=== PATIENT | female | born 1955 | race Caucasian/White ===

== ENCOUNTER 2017-08-21 00:32 | Observation (INO) | payer BC, OTHER ==
--- NOTE | 2017-08-21 00:39 | PDOC ---
History of Present Illness - General Stated Complaint: DIZZINESS Time Seen by Provider: 08/21/17 00:38 - History of Present Illness Initial Comments: 08/21/17 01:04 Ms. Rasheed is a 62 yo female w/ pmh of HTN who presents c/o a 24 hour history of dizziness. She reports that she believes she "did too much partying" this weekend and clarifies that she was drinking alcohol and eating salty foods over the holidays. Ms. Rasheed says that this started last evening and has continued on throughout the day; she believes it is due to increased blood pressure as she has had similar problems in the past. She denies any recreational drug use. The patient denies chest pain, shortness of breath, and headache. Denies fever, chills, nausea, vomit, diarrhea and constipation. Denies dysuria, frequency, urgency and hematuria. Allergies: Penicillins Past History - Past Medical History Allergies/Adverse Reactions: Allergies Allergy/AdvReac Type Severity Reaction Status Date / Time Penicillins Allergy Severe Difficulty Verified 08/21/17 00:44 Breathing Home Medications: Ambulatory Orders Valsartan [Diovan] 320 mg PO DAILY 10/09/11 Nebivolol HCl [Bystolic] 20 mg DAILY 08/21/17 Disorders: Yes (acid reflux) HTN: Yes - Suicide/Smoking/Psychosocial Hx Smoking Status: No Smoking History: Former smoker Number of Cigarettes Smoked Daily: 0 Review of Systems - Review of Systems Comments:: 08/21/17 01:08 GENERAL/CONSTITUTIONAL: No fever or chills. No weakness. HEAD, EYES, EARS, NOSE AND THROAT: No change in vision. No ear pain or discharge. No sore throat. CARDIOVASCULAR: No chest pain or shortness of breath RESPIRATORY: No cough, wheezing, or hemoptysis. GASTROINTESTINAL: No nausea, vomiting, diarrhea or constipation. GENITOURINARY: No dysuria, frequency, or change in urination. MUSCULOSKELETAL: No joint or muscle swelling or pain. No neck or back pain. SKIN: No rash NEUROLOGIC: +Dizziness as reported; non-positional ENDOCRINE: No increased thirst. No abnormal weight change HEMATOLOGIC/LYMPHATIC: No anemia, easy bleeding, or history of blood clots. ALLERGIC/IMMUNOLOGIC: No hives or skin allergy. *Physical Exam - Physical Exam Comments: 01/02/18 01:09 GENERAL: Awake, alert, and fully oriented, in no acute distress HEAD: No signs of trauma, normocephalic, atraumatic EYES: PERRLA, EOMI, sclera anicteric, conjunctiva clear ENT: Auricles normal inspection, hearing grossly normal, nares patent, oropharynx clear without exudates. Moist mucosa NECK: Normal ROM, supple, no lymphadenopathy, JVD, or masses LUNGS: No distress, speaks full sentences, clear to auscultation bilaterally HEART: Regular rate and rhythm, normal S1 and S2, no murmurs, rubs or gallops, peripheral pulses normal and equal bilaterally. ABDOMEN: Soft, nontender, normoactive bowel sounds. No guarding, no rebound. No masses EXTREMITIES: Normal inspection, Normal range of motion, no edema. No clubbing or cyanosis. NEUROLOGICAL: Cranial nerves II through XII grossly intact. Normal speech, normal gait, no focal sensorimotor deficits SKIN: Warm, Dry, normal turgor, no rashes or lesions noted. ED Treatment Course - LABORATORY CBC & Chemistry Diagram: 08/21/17 01:15 08/21/17 01:15 Medical Decision Making - Medical Decision Making 08/21/17 02:28 Ms. Rasheed presents with dizziness and HTN. Repeat BP decreased to 170's. Clonidine 0.2 given. Labs concerning for Hyponatremia as below. BP after clonidine 157/65. Head CT revealed no acute findings. Patient will be observed in the ED overnight. 08/21/17 06:55 Patient signed out to Dr. Molina for further care. Laboratory Results - last 24 hr 08/21/17 08/21/17 01:15 01:15 WBC 11.0 H D RBC 3.89 Hgb 13.3 Hct 39.0 MCV 100.4 H MCH 34.1 H MCHC 34.0 RDW 13.3 Plt Count 257 MPV 7.5 Neutrophils % 77.3 D Lymphocytes % 15.6 D Monocytes % 5.6 Eosinophils % 0.8 Basophils % 0.7 Sodium 129 L Potassium 3.1 L D Chloride 92 L Carbon Dioxide 23 D Anion Gap 14 BUN 18 D Creatinine 0.7 D Creat Clearance w eGFR > 60 Random Glucose 115 H Calcium 8.8 Total Bilirubin 1.1 H D AST 82 H D ALT 105 H Alkaline Phosphatase 82 Creatine Kinase 96 Troponin I 0.03 Total Protein 6.9 Albumin 3.8 *DC/Admit/Observation/Transfer Diagnosis at time of Disposition: Hyponatremia, Dizziness Hypertension Qualifiers: Hypertension type: unspecified Qualified Code(s): I10 - Essential (primary) hypertension - Discharge Dispostion Admit: Yes - Referrals - Patient Instructions - Post Discharge Activity
--- NOTE | 2017-08-21 00:48 | PDOC ---
Attending Attestation - Physicial Exam PE: 08/21/17 01:51 GENERAL: Awake, alert, and fully oriented, in no acute distress HEAD: No signs of trauma EYES: PERRLA, EOMI, sclera anicteric, conjunctiva clear ENT: Auricles normal inspection, nares patent. Moist mucosa NECK: Normal ROM, supple, no JVD, or masses LUNGS: Breath sounds equal, clear to auscultation bilaterally. No wheezes, and no crackles HEART: Regular rate and rhythm, normal S1 and S2, no murmurs, rubs or gallops ABDOMEN: Soft, nontender, normoactive bowel sounds. No guarding, no rebound. No masses EXTREMITIES: Normal range of motion, no edema. No clubbing or cyanosis. No cords, erythema, or tenderness NEUROLOGICAL: Alert and oriented x 3. Moves all extremities. Face is symmetric. SKIN: Warm, Dry, normal turgor, no rashes or lesions noted. - Medical Decision Making 08/21/17 01:52 Documentation prepared by Zoe Mena, acting as medical office worker for Julienne Morrow MD. <Zoe Mena - Last Filed: 08/21/17 01:51> - Resident Resident Name: Doug Bah - ED Attending Attestation I have performed the following: I have examined & evaluated the patient, The case was reviewed & discussed with the resident, I agree w/resident's findings & plan, Exceptions are as noted - HPI HPI: 08/21/17 00:47 62 yo female has c/o dizziness. Pt has significant high blood pressure - Medical Decision Making 08/22/17 00:07 pt admitted pt found to be hyponatremic ,hypokalemic, hypertensive, ct head negative <Julienne Morrow - Last Filed: 08/22/17 00:08>
[2017-08-21 00:54] VITALS: TEMP 98.1; BMI 29.2
[2017-08-21] MEDS ORDERED: cloNIDine HCL 0.1 MG TABLET PO ONE (00:56)
[2017-08-21] MEDS ORDERED: cloNIDine HCL 0.1 MG TABLET ONE (01:12)
[2017-08-21 01:30] LABS: BASO % 0.7 % (0-2.0); EOS % 0.8 % (0-4.5); HEMOGLOBIN 13.3 GM/dL (10.7-15.3); LYMPH % 15.6 % (8-40); MCH 34.1 pg (25.7-33.7); MEAN CELL VOLUME 100.4 fl (80-96); MEAN PLT VOLUME 7.5 fl (7.5-11.1); MONO % 5.6 % (3.8-10.2); NEUT % 77.3 % (42.8-82.8); PLATELET COUNT 257 K/MM3 (134-434); RBC 3.89 M/mm3 (3.60-5.2); RDW 13.3 % (11.6-15.6)
[2017-08-21 02:11] LABS: ALBUMIN 3.8 g/dl (3.4-5.0); ANION GAP 14 (8-16); BILIRUBIN,TOTAL 1.1 mg/dL (0.2-1.0); BLOOD UREA NITROGEN 18 mg/dL (7-18); CALCIUM 8.8 mg/dL (8.5-10.1); CHLORIDE 92 mmol/L (98-107); CO2 23 mmol/L (21-32); CREATININE 0.7 mg/dL (0.55-1.02); GLUCOSE,RANDOM 115 mg/dL (74-106); POTASSIUM 3.1 mmol/L (3.5-5.1); SGOT/AST 82 U/L (15-37); SGPT/ALT 105 U/L (12-78); SODIUM 129 mmol/L (136-145); TOT PROT 6.9 g/dl (6.4-8.2)
[2017-08-21 02:13] LABS: ALK PHOS 82 U/L (45-117)
[2017-08-21] MEDS ORDERED: MAGNESIUM SULF 50% (8.12 MEQ/2 ML-1 GM VIAL) IVPB ONE (02:17)
[2017-08-21] MEDS ORDERED: POTASSIUM CHLORIDE TABS 20 MEQ TABLET.ER (FP) PO ONE ×4 (02:17→04:34)
[2017-08-21] MEDS ORDERED: VALSARTAN 160 MG TABLET (UD) PO ONE (02:18)
[2017-08-21] MEDS ORDERED: MAGNESIUM SULF 50% (8.12 MEQ/2 ML-1 GM VIAL) ONE (02:46)
[2017-08-21] MEDS ORDERED: VALSARTAN 80 MG TABLET (UD) ONE ×2 (02:47→12:08)
[2017-08-21] MEDS ORDERED: SODIUM CHLORIDE 500 ML IV STA (02:54)
--- NOTE | 2017-08-21 08:21 | PDOC ---
History of Present Illness - General Chief Complaint: Blood Pressure Problem Stated Complaint: DIZZINESS Time Seen by Provider: 08/21/17 00:38 Past History - Past Medical History Allergies/Adverse Reactions: Allergies Allergy/AdvReac Type Severity Reaction Status Date / Time Penicillins Allergy Severe Difficulty Verified 08/21/17 00:44 Breathing Home Medications: Ambulatory Orders Valsartan [Diovan] 320 mg PO DAILY 10/09/11 Nebivolol HCl [Bystolic] 20 mg DAILY 08/21/17 Disorders: Yes (acid reflux) HTN: Yes - Suicide/Smoking/Psychosocial Hx Smoking Status: No Smoking History: Former smoker Have you smoked in the past 12 months: No Number of Cigarettes Smoked Daily: 0 Information on smoking cessation initiated: No Hx Alcohol Use: No Drug/Substance Use Hx: No *Physical Exam - Vital Signs Last Vital Signs Temp Pulse Resp BP Pulse Ox 98.1 F 65 18 157/65 98 08/21/17 00:44 08/21/17 00:44 08/21/17 00:44 08/21/17 02:55 08/21/17 00:44 ED Treatment Course - LABORATORY CBC & Chemistry Diagram: 08/21/17 01:15 08/21/17 01:15 - ADDITIONAL ORDERS Additional order review: Laboratory Results 08/21/17 01:15 Sodium 129 L Potassium 3.1 L D Chloride 92 L Carbon Dioxide 23 D Anion Gap 14 BUN 18 D Creatinine 0.7 D Creat Clearance w eGFR > 60 Random Glucose 115 H Calcium 8.8 Total Bilirubin 1.1 H D AST 82 H D ALT 105 H Alkaline Phosphatase 82 Creatine Kinase 96 Troponin I 0.03 Total Protein 6.9 Albumin 3.8 08/21/17 01:15 RBC 3.89 MCV 100.4 H MCHC 34.0 RDW 13.3 MPV 7.5 Neutrophils % 77.3 D Lymphocytes % 15.6 D Monocytes % 5.6 Eosinophils % 0.8 Basophils % 0.7 - Medications Given in the ED: ED Medications Discontinued Medications Generic Name Dose Route Start Last Admin Trade Name Freq PRN Reason Stop Dose Admin Clonidine 0.2 mg 08/21/17 00:56 08/21/17 01:25 Catapres - PO 08/21/17 00:57 0.2 mg ONCE ONE Administration Sodium Chloride 500 mls @ 1,000 mls/hr 08/21/17 02:54 08/21/17 02:56 Normal Saline - IV 08/21/17 03:23 1,000 mls/hr ASDIR STA Administration Magnesium Sulfate 2 gm 08/21/17 02:17 08/21/17 02:56 Magnesium Sulfate IVPB 08/21/17 02:18 2 gm ONCE ONE Administration Potassium Chloride 40 meq 08/21/17 02:17 08/21/17 02:56 K-Dur - PO 08/21/17 02:18 40 meq ONCE ONE Administration Potassium Chloride 40 meq 08/21/17 04:14 08/21/17 04:37 K-Dur - PO 08/21/17 04:15 40 meq ONCE ONE Administration Valsartan 160 mg 08/21/17 02:18 08/21/17 02:56 Diovan - PO 08/21/17 02:19 160 mg ONCE ONE Administration Medical Decision Making - Medical Decision Making 08/21/17 08:03 Pt signed out by night team. Pt is a 62 y/o F with PMH HTN who came in with headache, and was found to be hypertensive and mildly hyponatremic and hypokalemic. Hypertension resolved promtly with clonidine. Pt was given NS and KCl. Pt is currently comfortable in bed. Her symptoms have resolved. Pt no longer has headache. Currently afebrile, stable, in NAD. Sent microblog to admitting team at 7:12am. 08/21/17 08:22 Pt still comfortable. Microblog showing as unread. 08/21/17 08:58 Spoke with admitting team who will see the patient. *DC/Admit/Observation/Transfer Diagnosis at time of Disposition: Hyponatremia, Dizziness Hypertension Qualifiers: Hypertension type: unspecified Qualified Code(s): I10 - Essential (primary) hypertension - Referrals - Patient Instructions - Post Discharge Activity
--- NOTE | 2017-08-21 10:00 | HP ---
CHIEF COMPLAINT: "Dizziness, headache, disorientation" PCP: Dr. Doyle Scott ([facility], ) HISTORY OF PRESENT ILLNESS: Patient is an 62 year old female presented to the ED with the chief complaint of "Headache, dizziness, disorientation". As per the patient, she was apparently well until a day ago. She was driving back from [facility] to [place] and started feeling very dizzy, had blurring of vision, wasn't feeling herself. She had similar episode in 2011 then she came to the ED at [facility], was treated and discharged the same day. Patient was worried that her blood pressure was high hence came in to the ED for further evaluation. Patient reports a day prior to ED visit, she went to a democrat where she had high salt diet and more than 4 cocktails Denies chest pain, sob, cough, palpitation, abdominal pain, nausea or vomiting, numbness, weakness of extremities, seizure activity. Bladder/Bowel habit normal. Sleep/Appetite normal prior to illness. Patient mentions she was diagnosed to be hypertensive about 10 yrs ago. Visits her PCP every 2 yrs. ER course was notable for: (1) Blood pressure 202/163; Afebrile; (2) EKG: Sinus bradycardia (3) Clonidine 0.3mg; K-dur 40mg; IV Magnesium 2gm Recent Travel: None PAST MEDICAL HISTORY: Hypertension PAST SURGICAL HISTORY: None Social History: Smoking: Quit 10 years ago, smoked for 9 years about 1/2 a pack Alcohol: Drinks on the weekends, around 2-3 cocktails Drugs: Denies Family History: Non contributory Allergies Penicillins Allergy (Severe, Verified 08/21/17 00:44) Difficulty Breathing HOME MEDICATIONS: Home Medications Medication Instructions Recorded Valsartan [Diovan] 320 mg PO DAILY 10/09/11 Nebivolol HCl [Bystolic] 20 mg DAILY 08/21/17 REVIEW OF SYSTEMS CONSTITUTIONAL: Absent: fever, chills, diaphoresis, generalized weakness, malaise, loss of appetite, weight change HEENT: Absent: rhinorrhea, nasal congestion, throat pain, throat swelling, difficulty swallowing, mouth swelling, ear pain, eye pain, visual changes CARDIOVASCULAR: Absent: chest pain, syncope, palpitations, irregular heart rate, lightheadedness , peripheral edema RESPIRATORY: Absent: cough, shortness of breath, dyspnea with exertion, orthopnea, wheezing, stridor, hemoptysis GASTROINTESTINAL: Absent: abdominal pain, abdominal distension, nausea, vomiting, diarrhea, constipation, melena, hematochezia GENITOURINARY: Absent: dysuria, frequency, urgency, hesitancy, hematuria, flank pain, genital pain MUSCULOSKELETAL: Absent: myalgia, arthralgia, joint swelling, back pain, neck pain SKIN: Absent: rash, itching, pallor HEMATOLOGIC/IMMUNOLOGIC: Absent: easy bleeding, easy bruising, lymphadenopathy, frequent infections ENDOCRINE: Absent: unexplained weight gain, unexplained weight loss, heat intolerance, cold intolerance NEUROLOGIC: Present: headache, dizziness, blurring of vision, disorientation. Absent: , focal weakness or paresthesias, dizziness, unsteady gait, seizure, mental status changes, bladder or bowel incontinence PSYCHIATRIC: Absent: anxiety, depression, suicidal or homicidal ideation, hallucinations. PHYSICAL EXAMINATION Vital Signs - 24 hr 08/21/17 08/21/17 00:44 02:55 Temperature 98.1 F Pulse Rate 65 Respiratory 18 Rate Blood Pressure 202/163 Blood Pressure 157/65 [Left Arm] O2 Sat by Pulse 98 Oximetry (%) GENERAL: Patient is a lying comfortably in bed, Awake, alert, and fully oriented , in no acute distress. HEAD: Normal with no signs of trauma. EYES: EOM intact, no pallor or icterus. EARS, NOSE, THROAT: Ears normal. Moist mucous membranes. NECK: Supple. LUNGS: B/L Breath sounds equal, clear to auscultation bilaterally. No wheezes, and no crackles. No accessory muscle use. HEART: Regular rate and rhythm, normal S1 and S2 without murmur. ABDOMEN: Soft, nontender, not distended, normoactive bowel sounds, no guarding, no rebound, no masses. No hepatomegaly or splenomegaly. MUSCULOSKELETAL: Normal range of motion at all joints. No bony deformities or tenderness. No CVA tenderness. UPPER EXTREMITIES: 2+ pulses, warm, well-perfused. No cyanosis. No clubbing. No peripheral edema. LOWER EXTREMITIES: 2+ pulses, warm, well-perfused. No calf tenderness. No peripheral edema. NEUROLOGICAL: No facial droop, power 5/5 in all extremities. Cranial nerves II- XII intact. Normal speech. Normal gait-walked more than 50 ft. PSYCHIATRIC: Cooperative. Good eye contact. Appropriate mood and affect. SKIN: Warm, dry, normal turgor, no rashes or lesions noted, normal capillary refill. Laboratory Results - last 24 hr 08/21/17 08/21/17 01:15 01:15 WBC 11.0 H D RBC 3.89 Hgb 13.3 Hct 39.0 MCV 100.4 H MCH 34.1 H MCHC 34.0 RDW 13.3 Plt Count 257 MPV 7.5 Neutrophils % 77.3 D Lymphocytes % 15.6 D Monocytes % 5.6 Eosinophils % 0.8 Basophils % 0.7 Sodium 129 L Potassium 3.1 L D Chloride 92 L Carbon Dioxide 23 D Anion Gap 14 BUN 18 D Creatinine 0.7 D Creat Clearance w eGFR > 60 Random Glucose 115 H Calcium 8.8 Total Bilirubin 1.1 H D AST 82 H D ALT 105 H Alkaline Phosphatase 82 Creatine Kinase 96 Troponin I 0.03 Total Protein 6.9 Albumin 3.8 ASSESSMENT/PLAN: Patient is an 62 year old female with significant past medical history of presented to the ED with the chief complaint of "Headache, dizziness, disorientation" was found to have Hypertensive urgency. # Hypertensive urgency c/o headache, dizziness, blurring of vision, disorientation. On arrival, BP was 202/163 mmHg. In the ED, even without receiving medication , her BP decreased to 170/[address] in Observation Patient is currently asymptomatic. Blood pressure has improved. Head CT negative for any acute pathology This morning, gave her home dose of Bystolic and Diovan Repeat BP now is : Urine toxicology pending. # Electrolyte imbalance Hypokalemia-3.1, Hyponatremia-129. Most likely secondary to use to alcohol K repleted Repeat BMP is pending # FEN Not on IV fluids Electrolytes to be repeated, report pending Sodium controlled diet # Prophylaxis: For DVT: Ambulating, early discharge For GI: Not indicated # Code Status: Full Code # Dispo: Patient agrees to see her PCP in a week. Will discharge once patient' s labs comes back. Case discussed with Dr. Santos.
[2017-08-21] MEDS ORDERED: VALSARTAN 160 MG TABLET (UD) PO SCH (10:15)
[2017-08-21] MEDS ORDERED: NEBIVOLOL 10 MG TABLET (FP) PO SCH (10:15)
[2017-08-21 11:43] LABS: ANION GAP 12 (8-16); BLOOD UREA NITROGEN 14 mg/dL (7-18); CALCIUM 8.9 mg/dL (8.5-10.1); CHLORIDE 102 mmol/L (98-107); CO2 22 mmol/L (21-32); GLUCOSE,RANDOM 107 mg/dL (74-106); SODIUM 136 mmol/L (136-145)
[2017-08-21 11:44] LABS: CREATININE 0.6 mg/dL (0.55-1.02); MAGNESIUM 2.9 mg/dL (1.8-2.4); POTASSIUM 5.3 mmol/L (3.5-5.1)
--- NOTE | 2017-08-21 11:59 | DS ---
Physical Exam: SUBJECTIVE: Patient seen and examined at bed side. No complaints. Headache, dizziness and blurring of vision has resolved. Denies chest pain, sob, cough, palpitation, abdominal pain, nausea or vomiting. Bowel/Bladder habit normal. No acute events in the ED. OBJECTIVE: Vital Signs Period Temp Pulse Resp BP Sys/Scott Pulse Ox Last 24 Hr 98.1 F 55-65 16-18 109-202/62-163 98-99 PHYSICAL EXAM GENERAL: Patient is a lying comfortably in bed, Awake, alert, and fully oriented , in no acute distress. HEAD: Normal with no signs of trauma. EYES: EOM intact, no pallor or icterus. EARS, NOSE, THROAT: Ears normal. Moist mucous membranes. NECK: Supple. LUNGS: B/L Breath sounds equal, clear to auscultation bilaterally. No wheezes, and no crackles. No accessory muscle use. HEART: Regular rate and rhythm, normal S1 and S2 without murmur. ABDOMEN: Soft, nontender, not distended, normoactive bowel sounds, no guarding, no rebound, no masses. No hepatomegaly or splenomegaly. MUSCULOSKELETAL: Normal range of motion at all joints. No bony deformities or tenderness. No CVA tenderness. UPPER EXTREMITIES: 2+ pulses, warm, well-perfused. No cyanosis. No clubbing. No peripheral edema. LOWER EXTREMITIES: 2+ pulses, warm, well-perfused. No calf tenderness. No peripheral edema. NEUROLOGICAL: No facial droop, power 5/5 in all extremities. Cranial nerves II- XII intact. Normal speech. Normal gait-walked more than 50 ft. PSYCHIATRIC: Cooperative. Good eye contact. Appropriate mood and affect. SKIN: Warm, dry, normal turgor, no rashes or lesions noted, normal capillary refill. LABS Laboratory Results - last 24 hr 08/21/17 08/21/17 08/21/17 01:15 01:15 10:40 WBC 11.0 H D RBC 3.89 Hgb 13.3 Hct 39.0 MCV 100.4 H MCH 34.1 H MCHC 34.0 RDW 13.3 Plt Count 257 MPV 7.5 Neutrophils % 77.3 D Lymphocytes % 15.6 D Monocytes % 5.6 Eosinophils % 0.8 Basophils % 0.7 Sodium 129 L 136 Potassium 3.1 L D 5.3 H D Chloride 92 L 102 D Carbon Dioxide 23 D 22 Anion Gap 14 12 BUN 18 D 14 D Creatinine 0.7 D 0.6 Creat Clearance w eGFR > 60 Random Glucose 115 H 107 H Calcium 8.8 8.9 Magnesium 2.9 H Total Bilirubin 1.1 H D AST 82 H D ALT 105 H Alkaline Phosphatase 82 Creatine Kinase 96 Troponin I 0.03 Total Protein 6.9 Albumin 3.8 HOSPITAL COURSE: Date of Admission:08/21/17 Date of Discharge: 08/21/17 Patient is an 62 year old female with significant past medical history of presented to the ED with the chief complaint of "Headache, dizziness, disorientation" was found to have Hypertensive urgency. On arrival, BP was 202/ 163 mmHg. In the ED, even without receiving medication, her BP decreased to 170/ 78 mmHg. Patient received Clonidine 0.2 mg and blood pressure improved o 150/ 64mmHg. Head CT negative for any acute pathology. Patient is currently asymptomatic. Blood pressure has improved. Patient reassures she will visit her PCP within a week and f/up with blood work. Patient was advised to take her medication daily , check her BP daily, follow low sodium diet and daily exercises. Patient was also found to have Electrolyte imbalance (Hypokalemia-3.1, Hyponatremia-129). Most likely secondary to use to alcohol. K was repleted. Case discussed with Dr. Santos. Minutes to complete discharge: 40 Discharge Summary Reason For Visit: DIZZINESS/HYPONATREMIA/HYPERTENSION Current Active Problems Dizziness (Acute) Hypertension (Acute) Hyponatremia (Acute) - Instructions Diet, Activity, Other Instructions: You were placed in observation due to Hypertensive urgency meaning your blood pressure was really high. Please take your medication regularly. Visit your PCP within a week and highly recommend you to recheck your blood (recheck potassium ) in a week. Please follow the instructions below. 1. Lifestyle modifications: low salt diet, high fibre diet 2. Exercise at least 3-4 times/week, 40 mins a day. 3. Take your medication daily: Bystolic and Diovan 4. Cut down alcohol intake. 5. Measure blood pressure regularly at home. 6. F/up with PCP 7. Check hypertensive changes in eyes-visit chief ophthalmic technician. If your symptoms get worse or you develop any new symptoms, please visit the ED immediately. Referrals: Doyle Scott [Primary Care Provider] - 1 Week (Please visit your PCP in a week. ) - Home Medications Comprehensive Discharge Medication List: Ambulatory Orders Valsartan [Diovan] 320 mg PO DAILY 10/09/11 Nebivolol HCl [Bystolic] 20 mg DAILY 08/21/17
[2017-08-21 13:04] LABS: COCAINE, UR NEGATIVE ng/ml (CUTOFF=300); METHADONE, UR NEGATIVE ng/ml (CUTOFF=300); OPIATES, URI NEGATIVE ng/ml (CUTOFF=300); PHENCYCLIDINE,URINE NEGATIVE ng/ml (CUTOFF=25); URINE AMPHETAMINES NEGATIVE ng/ml (CUTOFF=500); URINE BARBITURATES NEGATIVE ng/ml (CUTOFF=200); URINE BENZODIAZEPINES NEGATIVE ng/ml (CUTOFF=200)
[2017-08-21 13:56] VITALS: BP 118/68; PULSE 61
--- NOTE | 2017-08-21 14:00 | PN ---
Teaching Attending Note Name of Resident: Deysi Jose ATTENDING PHYSICIAN STATEMENT Time of evaluation: 12:25 PM I saw and evaluated the patient. I reviewed the resident's note and discussed the case with the resident. I agree with the resident's findings and plan as documented. SUBJECTIVE: Patient seen and examined. no complaints, all dressed and ready to leave. Denies any headache, vision changes, dizziness, dyspnea, abdominal pain or chest pain or palpitations. OBJECTIVE: Vital Signs Period Temp Pulse Resp BP Sys/Scott Pulse Ox Last 24 Hr 98.1 F 58-65 16-18 110-202/65-163 98-99 Intake & Output 08/18/17 08/19/17 08/20/17 08/21/17 23:59 23:59 23:59 23:59 Weight 160 lb GENERAL: Awake, alert, and fully oriented, in no acute distress. HEAD: Normal with no signs of trauma. EYES: Pupils equal, round and reactive to light, extraocular movements intact, sclera anicteric, conjunctiva clear. No lid lag. EARS, NOSE, THROAT: Ears normal, nares patent, oropharynx clear without exudates. Moist mucous membranes. NECK: Normal range of motion, supple without lymphadenopathy, JVD, or masses. LUNGS: Breath sounds equal, clear to auscultation bilaterally. No wheezes, and no crackles. No accessory muscle use. HEART: Regular rate and rhythm, S1S2 regular ABDOMEN: Soft, nontender, not distended, normoactive bowel sounds, no guarding, no rebound, no masses. No hepatomegaly or splenomegaly. MUSCULOSKELETAL: Normal range of motion at all joints. No bony deformities or tenderness. No CVA tenderness. UPPER EXTREMITIES: 2+ pulses, warm, well-perfused. No cyanosis. No clubbing. No peripheral edema. LOWER EXTREMITIES: 2+ pulses, warm, well-perfused. No calf tenderness. No peripheral edema. NEUROLOGICAL: Cranial nerves II-XII intact. Normal speech. Normal gait. PSYCHIATRIC: Cooperative. Good eye contact. Appropriate mood and affect. SKIN: Warm, dry, normal turgor, no rashes or lesions noted, normal capillary refill. Laboratory Results - last 24 hr 08/21/17 08/21/17 08/21/17 01:15 01:15 10:40 WBC 11.0 H D RBC 3.89 Hgb 13.3 Hct 39.0 MCV 100.4 H MCH 34.1 H MCHC 34.0 RDW 13.3 Plt Count 257 MPV 7.5 Neutrophils % 77.3 D Lymphocytes % 15.6 D Monocytes % 5.6 Eosinophils % 0.8 Basophils % 0.7 Sodium 129 L 136 Potassium 3.1 L D 5.3 H D Plasma Potassium Chloride 92 L 102 D Carbon Dioxide 23 D 22 Anion Gap 14 12 BUN 18 D 14 D Creatinine 0.7 D 0.6 Creat Clearance w eGFR > 60 Random Glucose 115 H 107 H Calcium 8.8 8.9 Magnesium 2.9 H Total Bilirubin 1.1 H D AST 82 H D ALT 105 H Alkaline Phosphatase 82 Creatine Kinase 96 Troponin I 0.03 Total Protein 6.9 Albumin 3.8 Opiates Screen Methadone Screen Barbiturate Screen Phencyclidine Screen Ur Amphetamines Screen MDMA (Ecstasy) Screen Benzodiazepines Screen Cocaine Screen U Marijuana (THC) Screen 08/21/17 08/21/17 12:10 12:10 WBC RBC Hgb Hct MCV MCH MCHC RDW Plt Count MPV Neutrophils % Lymphocytes % Monocytes % Eosinophils % Basophils % Sodium Potassium Plasma Potassium 5.0 Chloride Carbon Dioxide Anion Gap BUN Creatinine Creat Clearance w eGFR Random Glucose Calcium Magnesium Total Bilirubin AST ALT Alkaline Phosphatase Creatine Kinase Troponin I Total Protein Albumin Opiates Screen Negative Methadone Screen Negative Barbiturate Screen Negative Phencyclidine Screen Negative Ur Amphetamines Screen Negative MDMA (Ecstasy) Screen Negative Benzodiazepines Screen Negative Cocaine Screen Negative U Marijuana (THC) Screen Negative EKG: sinus bradycardia CT brain neg for acute process CXR: neg for acute process ASSESSMENT AND PLAN: -Uncontrolled HTN -Hyponatremia -Hypokalemia, then hyperkalemia, now improved Plan: BP improved, patient asymptomatic. Resume home meds. Patient counseled on home BP monitoring, agrees to comply with the same. Na normalized. K improved. Advised outpatient chem-7 in 1 week. Drug screen noted. Diet/medication compliance stressed. D/c home today with close outpatient follow up. PLan discussed with patient in detail, all questions answered.
--- NOTE | 2017-08-22 09:43 | EKG ---
Test Reason : Blood Pressure : / mmHG Vent. Rate : 054 BPM Atrial Rate : 054 BPM P-R Int : 156 ms QRS Dur : 086 ms QT Int : 478 ms P-R-T Axes : 037 -01 035 degrees QTc Int : 453 ms SINUS BRADYCARDIA MODERATE VOLTAGE CRITERIA FOR LVH, MAY BE NORMAL VARIANT BORDERLINE ECG WHEN COMPARED WITH ECG OF 09-OCT-2011 08:56, NO SIGNIFICANT CHANGE WAS FOUND Confirmed by MD Ana Rosa, Ck ([id number]) on 08/22/2017 9:42:59 AM Referred By: Confirmed By:Ck Oseguera MD
== END 2017-08-21 13:50 | disposition home or self-care (01) ==
LOC: JER 00:32 → JERBED 03:44 → UNDOADMOB 03:50 → JERBED 03:50
PROVIDERS: ADMIT Internal Medicine; ATTEND Hospitalist
PROC: 3E033GC Introduction of Other Therapeutic Substance into Peripheral Vein, Percutaneous Approach (ICD-10-PCS; principal; 2017-08-21)
PROC: 3E0337Z Introduction of Electrolytic and Water Balance Substance into Peripheral Vein, Percutaneous Approach (ICD-10-PCS; 2017-08-21)
DX: E87.1 Hypo-osmolality and hyponatremia (principal); R42 Dizziness and giddiness; E87.6 Hypokalemia; I10 Essential (primary) hypertension; K21.9 Gastro-esophageal reflux disease without esophagitis; Z88.0 Allergy status to penicillin; Z87.891 Personal history of nicotine dependence; I16.0 Hypertensive urgency; E87.8 Other disorders of electrolyte and fluid balance, not elsewhere classified
CPT/HCPCS: 36415; 70450-TC; 71045-TC; 80048; 80053; 80307; 82550; 83735; 84132; 84484; 85025; 93005; 93010; 99282-25; G0378